=== PATIENT | male | born 1985 | race Caucasian/White ===

== ENCOUNTER 2018-02-20 18:27 | Emergency (ER) | payer SELFPAY ==
[~2018-02-20] VITALS: Ht 180.3 cm; Wt 83.9 kg
--- NOTE | 2018-02-20 18:35 | NUR ---
BIB [facility] 89 [place],WANTS HELP REGARDING FOOD/RESIDENTIAL AND NEEDS A JOB. SEEN AT [facility] PER REPORT,STATES HE BROKE UP W/GF A WEEK AGO AND ISNT COPING WELL. A/OX 4. BREATHING EVEN AND UNLABORED. NO SOB, NAD, VITALS STABLE. SAFETY AND COMFORT MEASURES IN PLACE. AWAITING MD ORDERS.
[2018-02-20] MEDS ORDERED: IV NS 0.9% 1,000 ML BAG IV ONE (19:00)
[2018-02-20 19:10] LABS: BASOPHILS % (AUTO) 0.1 % (0.0-2.0); EOSINOPHILS % (AUTO) 0.3 % (0.0-6.0); HEMATOCRIT 39 % (39-51); HEMOGLOBIN 12.4 g/dL (13.5-17.5); LYMPHOCYTES # (AUTO) 1.6 /CMM (0.8-4.8); LYMPHOCYTES % (AUTO) 13.9 % (20.0-44.0); MEAN CORPUSCULAR HGB CONC 32 g/dl (31.0-36.0); MEAN CORPUSCULAR VOLUME 63 fL (80-96); MONOCYTES # (AUTO) 0.4 /CMM (0.1-1.30); MONOCYTES % (AUTO) 3.9 % (2.0-12.0); NEUTROPHILS # (AUTO) 9.1 /CMM (1.8-8.9); NEUTROPHILS % (AUTO) 81.8 % (43.0-81.0); PLATELET COUNT (AUTO) 257 /CMM (150-450); RDW COEFFICIENT OF VARIATION 15.5 (11.5-15.0); RED BLOOD CELL COUNT(AUTO) 6.29 MIL/uL (4.5-6.0); WHITE BLOOD COUNT (AUTO) 11.2 K/uL (4.3-11.0)
--- NOTE | 2018-02-20 19:14 | NUR ---
PATIENT REFUSED IV INSERTION AND IV FLUIDS.
[2018-02-20 19:27] LABS: ALANINE AMINOTRANSFERASE 18 U/L (12-78); ALBUMIN 4.3 g/dL (3.4-5.0); ALCOHOL, BLOOD < 3 mg/dL (0-0); ALKALINE PHOSPHATASE 51 U/L (46-116); ASPARTATE AMINOTRANSFERASE 48 U/L (15-37); BILIRUBIN,DIRECT 0.3 mg/dL (0.0-0.2); BILIRUBIN,TOTAL 1.8 mg/dL (0.2-1.0); CALCIUM, SERUM 9.1 mg/dL (8.5-10.1); CARBON DIOXIDE 27 mmol/L (21-32); CHLORIDE 104 mmol/L (98-107); CREATININE 0.2 mg/dL (0.6-1.3); GLUCOSE 105 mg/dL (74-106); POTASSIUM 3.6 mmol/L (3.5-5.1); SODIUM SERUM 141 mmol/L (136-145); TOTAL PROTEIN, SERUM 7.1 g/dL (6.4-8.2); UREA NITROGEN, BLOOD 10 mg/dL (7-18)
[2018-02-20 19:29] LABS: ACETAMINOPHEN 0 ug/ml (10-30); SALICYLATE < 0.2 mg/dL (2.8-20.0)
--- NOTE | 2018-02-20 19:34 | NUR ---
PT TO RESTROOM TO GIVE URINE SAMPLE.
--- NOTE | 2018-02-20 19:37 | NUR ---
REPORT GIVEN TO WAYNE CHANG FOR [facility].
--- NOTE | 2018-02-20 19:40 | NUR ---
RECEIVED REPORT FROM BERNARDO FORREST FOR [facility].
[2018-02-20 21:36] LABS: APPEARANCE,URINE CLEAR (CLEAR); BILIRUBIN,URINE 1+ (NEGATIVE); BLOOD, URINE TRACE-INTA Ery/uL (NEGATIVE); COLOR,URINE YELLOW (YELLOW); KETONES,URINE 2+ (NEGATIVE); LEUKOCYTE ESTERASE ,URINE NEGATIVE (NEGATIVE); NITRITE, URINE NEGATIVE (NEGATIVE); PROTEIN,URINE TRACE mg/dl (NEGATIVE); UGLUCOSE NEGATIVE (NEGATIVE); UROBILINOGEN,URINE 0.2 EU/dL (0.2)
--- NOTE | 2018-02-20 21:49 | NUR ---
Patient is resting comfortably in bed with eyes closed. Easily aroused. VSS
--- NOTE | 2018-02-20 22:15 | NUR ---
Patient is resting comfortably in bed with eyes closed. Easily aroused. VSS
[2018-02-20 22:31] LABS: CALCIUM OXALATE CRYSTALS,UR Moderate /HPF (None Seen)
[2018-02-20 22:32] LABS: BACTERIA,URINE Few /HPF (None Seen); WBC,URINE 0-2 /HPF (0-3)
[2018-02-20 22:33] LABS: MUCUS,URINE Few /LPF (None Seen); SQUAMOUS EPITHELIAL CELL,UR Rare /HPF (None Seen)
--- NOTE | 2018-02-20 22:45 | NUR ---
CALLED ART [facility] ROUND [facility]ER.
--- NOTE | 2018-02-20 23:55 | NUR ---
SHANNAN SILVA BEDSIDE FOR EVAL
[2018-02-21 00:21] VITALS: BP 143/72
== END 2018-02-21 00:22 | disposition home or self-care (01) ==
LOC: ER 18:29
DX: Z00.8 Encounter for other general examination (principal); Z59.0 Homelessness; Z60.2 Problems related to living alone
CPT/HCPCS: 36415; 76705; 80048; 80076; 80305; 80329; 81001; 85025; 99285; A4606; G0480 ×2; Z7610; 81000-TC; J7030